=== PATIENT | male | born 1965 | race Two or more races ===

== ENCOUNTER 2024-12-06 06:00 | Day surgery (SDC) | payer OTHER ==
[2024-11-30 10:18] LABS: BASO % 0.8 % (0.1-1.2); EOS # 0.16 (0.04-0.54); EOS % 2.2 % (0.7-7.0); LYMPH # 2.16 (1.18-3.74); LYMPH % 29.5 % (19.3-53.1); MEAN PLATELET VOLUME 10.10 fl (9.4-12.4); MONO # 0.62 (0.24-0.82); MONO % 8.5 % (4.7-12.5); NEUT # 4.28 (1.56-6.13); NEUT % 58.5 % (34.0-71.1); RED CELL DISTRIBUTION WIDTH 12.1 % (11.6-14.4)
[2024-11-30 10:19] LABS: URINE APPEARANCE Clear; URINE BILIRRUBIN Negative (NEGATIVE); URINE BLOOD Negative; URINE COLOR Yellow; URINE KETONE Negative (NEGATIVE); URINE LEUKOCYTE Negative; URINE NITRATE Negative; URINE PROTEIN Negative (NEGATIVE); URINE UROBILINOGEN 0.2 E.U./dl
[2024-11-30 10:23] LABS: URINE BACTERIA 5.9 uL (0.0-1933); URINE WBC 3.0 uL (0.0-23.2)
[2024-11-30 10:25] VITALS: BP 130/80
[2024-11-30 10:30] LABS: URINE CAST 0.29 uL (0.0-1.40); URINE EPITHELIAL CELLS 1.2 uL (0.0-38.8); URINE GLUCOSE >=1000 MG/DL (NEGATIVE); URINE RBC 1.4 uL (0.0-20.8)
[2024-11-30 11:06] LABS: ALT/SGPT 38.0 U/L (12-78); AST/SGOT 17.0 U/L (15-37); BILIRUBIN TOTAL 0.73 mg/dL (0.3-1.2); BUN CREA RATIO 20.0 (7.0-25.0); CREATININE SERUM 1.08 mg/dL (0.70-1.30); GFR 70.47; GLOBULINA 3.4 G/DL (2.4-3.5); GLUCOSE FASTING 141.0 mg/dL (65-100); OSMOLALITY SERUM 283.0 MOSM/KG (275-295)
[2024-11-30 11:25] LABS: INR 1.04
[~2024-12-06] VITALS: Ht 177.8 cm; Wt 87.5 kg
[~2024-12-06 06:00] MED LIST: JANUMET XR 1001 EACH; JARDIANCE; LOSARTAN POTASS50 MG
[2024-12-06] MEDS ORDERED: CEFAZOLIN SODIUM 1,000 MG VIAL ONE (06:18)
[2024-12-06] MEDS ORDERED: SUGAMMADEX SODIUM 200 MG/2 ML VIAL IV ONE (11:15)
[2024-12-07] MEDS ORDERED: CEFAZOLIN SODIUM 1,000 MG VIAL IV ONE (12:00)
== END 2024-12-06 13:35 | disposition home or self-care (01) ==
LOC: CIR.AMB 06:00
PROVIDERS: ATTEND Surgery
DX: K40.20 Bilateral inguinal hernia, without obstruction or gangrene, not specified as recurrent (principal)
CPT/HCPCS: 49650; S2900